=== PATIENT | male | born 1945 | race Caucasian/White ===

== ENCOUNTER 2018-06-01 08:54 | Emergency (ER) | payer MEDICARE, OTHER ==
[~2018-06-01] VITALS: Ht 177.8 cm; Wt 90.7 kg
[~2018-06-01 08:54] MED LIST: ELIMITE 5% CREA60 GM TOPIC; FLOMAX0.4 MG ORAL; FLUVOXAMINE MAL50 MG ORAL; MELATONIN OTC; RISPERDAL1 MG PO; ZOLPIDEM TARTRA10 MG ORAL; [UNRECOGNIZED DRUG - OTHER]
[2018-06-01 09:05] VITALS: BP 142/94
[2018-06-01 10:04] LABS: BILIRUBIN, URINE NEGATIVE (NEGATIVE); COLOR,URINE PALE YELLOW; GLUCOSE, URINE (UA) NEGATIVE (NEGATIVE); KETONES,URINE NEGATIVE (NEGATIVE); LEUKOCYTE ESTERASE ,URINE NEGATIVE (NEGATIVE); NITRITE,URINE NEGATIVE (NEGATIVE); PH,URINE 6 (4.5-8.0); PROTEIN,URINE NEGATIVE (NEGATIVE); UROBILINOGEN,URINE NORMAL MG/DL (0.0-1.0)
[2018-06-01 10:05] LABS: BASOPHILS % (AUTO) 1.4 % (0.0-2.0); EOSINOPHILS % (AUTO) 0.8 % (0.0-3.0); HEMATOCRIT 43.9 % (42.0-52.0); HEMOGLOBIN 14.8 G/DL (14.2-18.0); LYMPHOCYTES % (AUTO) 10.9 % (20.0-45.0); MEAN CORPUSCULAR VOLUME 92 FL (80-99); MONOCYTES % (AUTO) 5.1 % (1.0-10.0); NEUTROPHILS % (AUTO) 81.8 % (45.0-75.0); PLATELET COUNT 208 K/UL (150-450); RED BLOOD COUNT 4.76 M/UL (4.70-6.10); RED CELL DISTRIBUTION WIDTH 11.5 % (11.6-14.8)
[2018-06-01 10:09] LABS: APPEARANCE,URINE CLEAR
[2018-06-01 10:16] LABS: ANION GAP 8 mmol/L (5-15); BLOOD UREA NITROGEN 14 mg/dL (7-18); CALCIUM 9.5 MG/DL (8.5-10.1); CARBON DIOXIDE 28 MMOL/L (21-32); CHLORIDE 100 MMOL/L (98-107); CREATININE 1.1 MG/DL (0.55-1.30); POTASSIUM 4.1 MMOL/L (3.5-5.1); SODIUM 136 MMOL/L (136-145)
--- NOTE | 2018-06-01 10:48 | Diagnostic Imaging Report ---
Indication: Abdominal pain Technique: Continuous helical transaxial imaging of the abdomen and pelvis was obtained from the lung bases to the pubic symphysis. No intravenous contrast was administered. Coronal 2-D reformats were also obtained. Automatic Exposure Control was utilized. Total Dose length Product (DLP): 852.[address] Dose Index Volume (CTDIvol): 17.25 mGy Comparison: none Findings: The lung bases are clear. Cholecystectomy noted. Right kidney is absent. The left kidney is unremarkable. There is no hydronephrosis or renal stones. Aortoiliac calcifications are present. The appendix is normal. No evidence of bowel obstruction. No free air or free fluid identified. The urinary bladder is mostly nondistended. The urinary bladder protrudes inferiorly suggesting weakness of the bladder floor i.e. cystocele. There is a tiny hypodensity in the dome of the liver noted probably cystic though too small to adequately characterize. No adrenal mass seen. There is narrowing of intervertebral discs and accompanying endplate osteophyte formation. Hypertrophied facet joints also demonstrated. IMPRESSION: No acute findings appreciated. Status post right nephrectomy. Status post cholecystectomy. Suggestion of a cystocele with the inferior migration of a part of the urinary bladder. Degenerative changes of the spine. Tiny liver hypodensity likely a cyst. The CT scanner at [facility] is accredited by the [employer] and the scans are performed using dose optimization techniques as appropriate to a performed exam including Automatic Exposure control.
[2018-06-01 11:24] VITALS: BP 142/94
--- NOTE | 2018-06-01 14:38 | Emergency Room Report ---
History of Present Illness General Chief Complaint: Pain Source: Patient, Medical Record Present Illness HPI Patient presents with reports of discomfort to the right lower part of the rib cage area on the flank area reports that 3 days ago he was carrying some fairly heavy Shopping bags up some stairs after that he has felt specific pinpoint tenderness to that region denies any rash denies any chest pain or fall denies any shortness of breath pain is worsened with trying to sit up and also specific touch Denies any neck pain or photophobia denies any fall or trauma Allergies: Coded Allergies: No Known Allergies (Unverified , 02/25/15) Patient History Past Medical History: see triage record Pertinent Family History: none Reviewed Nursing Documentation: PMH: Agreed; PSxH: Agreed Nursing Documentation-PMH Past Medical History: No History, Except For Hx Cardiac Problems: No - IBS, enlarged prostate Hx Cancer: Yes - prostate Hx Gastrointestinal Problems: Yes - GERD, IBS Hx Dialysis: No - 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 History Of Psychiatric Problem: Yes - anxiety, depression Review of Systems All Other Systems: negative except mentioned in HPI Physical Exam Vital Signs Date Time Temp Pulse Resp B/P (MAP) Pulse Ox O2 Delivery O2 Flow Rate FiO2 06/01/18 08:59 98.4 104 18 142/94 97 Room Air Sp02 EP Interpretation: reviewed, normal General Appearance: well appearing, no apparent distress Head: normocephalic, atraumatic Eyes: bilateral eye PERRL, bilateral eye EOMI ENT: hearing grossly normal, normal pharynx, TMs + canals normal, uvula midline Neck: full range of motion, supple, no meningismus, no bony tend Respiratory: lungs clear, normal breath sounds, no rhonchi, no respiratory distress, no retraction, no accessory muscle use Cardiovascular #1: normal peripheral pulses, regular rate, rhythm, no edema, no gallop, no JVD, no murmur Gastrointestinal: normal bowel sounds, non tender, soft, no mass, no organomegaly, non-distended, no guarding, no hernia, no pulsatile mass, no rebound Genitourinary: no CVA tenderness Musculoskeletal: normal inspection, other - No rash fairly specific discomfort on palpation of the lower aspect of the right mid axillary, rib cage region Neurologic: oriented x3, responsive, crane manager III-XII nml as tested, motor strength/ tone normal, sensory intact Psychiatric: mood/affect normal Skin: normal color, no rash, warm/dry, palpation normal, other - Previous surgical scar Lymphatic: normal inspection, no adenopathy Medical Decision Making Diagnostic Impression: Primary Impression: muscle strain ER Course Given the patient's history of nephrectomy given his age and comorbidities initial baseline blood work and imaging was obtained all within normal limits patient remains hemodynamically stable was encouraged to take minimal Tylenol to see if that improves some of the discomfort and patient will have close outpatient follow-up Labs Test 06/01/18 08:38 06/01/18 09:39 White Blood Count 7.0 K/UL (4.8-10.8) Red Blood Count 4.76 M/UL (4.70-6.10) Hemoglobin 14.8 G/DL (14.2-18.0) Hematocrit 43.9 % (42.0-52.0) Mean Corpuscular Volume 92 FL (80-99) Mean Corpuscular Hemoglobin 31.1 PG (27.0-31.0) Mean Corpuscular Hemoglobin Concent 33.7 G/DL (32.0-36.0) Red Cell Distribution Width 11.5 % (11.6-14.8) Platelet Count 208 K/UL (150-450) Mean Platelet Volume 7.2 FL (6.5-10.1) Neutrophils (%) (Auto) 81.8 % (45.0-75.0) Lymphocytes (%) (Auto) 10.9 % (20.0-45.0) Monocytes (%) (Auto) 5.1 % (1.0-10.0) Eosinophils (%) (Auto) 0.8 % (0.0-3.0) Basophils (%) (Auto) 1.4 % (0.0-2.0) Sodium Level 136 MMOL/L (136-145) Potassium Level 4.1 MMOL/L (3.5-5.1) Chloride Level 100 MMOL/L (98-107) Carbon Dioxide Level 28 MMOL/L (21-32) Anion Gap 8 mmol/L (5-15) Blood Urea Nitrogen 14 mg/dL (7-18) Creatinine 1.1 MG/DL (0.55-1.30) Estimat Glomerular Filtration Rate mL/min (>60) Glucose Level 113 MG/DL (74-106) Calcium Level 9.5 MG/DL (8.5-10.1) Urine Color Pale yellow Urine Appearance Clear Urine pH 6 (4.5-8.0) Urine Specific [place] 1.010 (1.005-1.035) Urine Protein Negative (NEGATIVE) Urine Glucose (UA) Negative (NEGATIVE) Urine Ketones Negative (NEGATIVE) Urine Blood Negative (NEGATIVE) Urine Nitrite Negative (NEGATIVE) Urine Bilirubin Negative (NEGATIVE) Urine Urobilinogen Normal MG/DL (0.0-1.0) Urine Leukocyte Esterase Negative (NEGATIVE) CT/MRI/US Diagnostic Results CT/MRI/US Diagnostic Results : Impression CT abdomen pelvisIMPRESSION: No acute findings appreciated. Status post right nephrectomy. Status post cholecystectomy. Suggestion of a cystocele with the inferior migration of a part of the urinary bladder. Degenerative changes of the spine. Tiny liver hypodensity likely a cyst. Last Vital Signs Date Time Temp Pulse Resp B/P (MAP) Pulse Ox O2 Delivery O2 Flow Rate FiO2 06/01/18 11:24 98.4 104 18 142/94 97 Room Air Status: improved Disposition: HOME, SELF-CARE Condition: Stable Referrals: OTHER,REFERRING Patient Instructions: Muscle Strain, [id number] Additional Instructions: Patient is provided with the discharge instructions notified to follow up with primary doctor in the next 2-3 days otherwise return to the er with any worsening symptoms. Please note that this report is being documented using [employer] technology. This can lead to erroneous entry secondary to incorrect interpretation by the dictating instrument. Roc Alicea DO Jun 01, 2018 14:38
== END 2018-06-01 11:00 | disposition home or self-care (01) ==
LOC: EMR 09:30
DX: S29.019A Strain of muscle and tendon of unspecified wall of thorax, initial encounter (principal); X50.0XXA Overexertion from strenuous movement or load, initial encounter; Y92.89 Other specified places as the place of occurrence of the external cause; K21.9 Gastro-esophageal reflux disease without esophagitis; F41.9 Anxiety disorder, unspecified; F32.9 Major depressive disorder, single episode, unspecified; Z85.46 Personal history of malignant neoplasm of prostate
CPT/HCPCS: 36415; 74176; 80048; 81003; 85025; 99284

== ENCOUNTER 2019-03-17 09:25 | Inpatient (IN) | payer MEDICARE, OTHER ==
[~2019-03-17] VITALS: Ht 177.8 cm; Wt 93.0 kg
[2019-03-17 09:25] VITALS: BP 124/84
[~2019-03-17 09:25] MED LIST changes: +FLUVOXAMINE MA100 MG PO; +GLUCOSAMINE1000 M1 PO; +MELATONIN 3 MG1 EAC1 PO; +PREVAGEN ORAL; +VALERIAN ROOT100 MG PO
--- NOTE | 2019-03-17 09:30 | NUR ---
ED Nurse Note: Pt brought by ambulance from home due dizziness x 07:00 AM today; Pt denies pain or N/V/D. Pt is A&O X4, V/S noted with no s/s of acute distress noted at this time. Pt states " I tend to worry a lot because of my mental health". Pt reports hx of BPH, Anxiety and Depression. Pt is connected to the ekg monitor tech. ERMD at bedside evaluating the pt.
--- NOTE | 2019-03-17 09:44 | Emergency Room Report ---
History of Present Illness General Chief Complaint: Palpitations Source: Patient Present Illness HPI Patient is a 74-year-old male brought in by EMS after increased palpitations. Patient onset of symptoms this morning. This was during rest. He denies any prior cardiac history. He reports having some prior history of anxiety. He states he had a temperature/higher than 99 at home. He had a rapid heartbeat. He reports feeling somewhat lightheaded. He denies any loss of consciousness. He reports having some generalized weakness. He reports having prior history of prostate cancer for which he is currently only having surveillance. 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 Review of Systems All Other Systems: negative except mentioned in HPI Physical Exam Vital Signs Date Time Temp Pulse Resp B/P (MAP) Pulse Ox O2 Delivery O2 Flow Rate FiO2 03/17/19 09:22 97.7 101 17 124/84 (97) 99 Room Air Sp02 EP Interpretation: reviewed, normal General Appearance: normal inspection, well appearing, no apparent distress, alert, GCS 15 Head: atraumatic ENT: normal ENT inspection, hearing grossly normal, normal voice Neck: normal inspection, full range of motion, supple, no bony tend Respiratory: normal inspection, lungs clear, normal breath sounds, no respiratory distress, no retraction, no wheezing Cardiovascular #1: regular rate, rhythm, no edema Gastrointestinal: normal inspection, normal bowel sounds, non tender, soft, no guarding, no hernia Genitourinary: no CVA tenderness Musculoskeletal: normal inspection, back normal, normal range of motion Neurologic: normal inspection, alert, oriented x3, responsive, director of vocational training III-XII nml as tested, speech normal Psychiatric: normal inspection, judgement/insight normal, mood/affect normal Skin: no rash Medical Decision Making Diagnostic Impression: Primary Impression: Palpitations ER Course Patient presented for palpitations. The differential diagnosis included was not limited to arrhythmia, thyroid storm, sepsis, anemia, myocardial infarction , alcohol withdrawal, stimulant abuse, caffeine overdose among others. Because of complexity of patient's case laboratory tests and imaging studies were ordered. EKG interpreted by me showed normal sinus rhythm without acute ST or T wave changes. Patient was noted to have some rapid heartbeat. This may be anxiety related however given the patient's comorbidities patient will be admitted to the hospital. He was noted to have some abdominal pain and CT abdomen pelvis was ordered for this. CT abdomen pelvis read by radiology showed no evidence of acute abdominal pathology. There may be some enteritis. Dr. Johnathon Fox was contacted for inpatient management. Laboratory Tests Test 03/17/19 09:45 White Blood Count 7.6 K/UL (4.8-10.8) Red Blood Count 4.37 M/UL (4.70-6.10) L Hemoglobin 13.4 G/DL (14.2-18.0) L Hematocrit 39.2 % (42.0-52.0) L Mean Corpuscular Volume 90 FL (80-99) Mean Corpuscular Hemoglobin 30.7 PG (27.0-31.0) Mean Corpuscular Hemoglobin Concent 34.2 G/DL (32.0-36.0) Red Cell Distribution Width 11.3 % (11.6-14.8) L Platelet Count 211 K/UL (150-450) Mean Platelet Volume 6.0 FL (6.5-10.1) L Neutrophils (%) (Auto) % (45.0-75.0) Lymphocytes (%) (Auto) % (20.0-45.0) Monocytes (%) (Auto) % (1.0-10.0) Eosinophils (%) (Auto) % (0.0-3.0) Basophils (%) (Auto) % (0.0-2.0) Differential Total Cells Counted 100 Neutrophils % (Manual) 92 % (45-75) H Lymphocytes % (Manual) 3 % (20-45) L Monocytes % (Manual) 5 % (1-10) Eosinophils % (Manual) 0 % (0-3) Basophils % (Manual) 0 % (0-2) Band Neutrophils 0 % (0-8) Platelet Estimate Adequate Platelet Morphology Normal Red Blood Cell Morphology Normal Prothrombin Time 9.9 SEC (9.30-11.50) Prothrombin Time INR 0.9 (0.9-1.1) PTT 26 SEC (23-33) Urine Color Pale yellow Urine Appearance Clear Urine pH 6 (4.5-8.0) Urine Specific [place] 1.010 (1.005-1.035) Urine Protein Negative (NEGATIVE) Urine Glucose (UA) Negative (NEGATIVE) Urine Ketones Negative (NEGATIVE) Urine Blood Negative (NEGATIVE) Urine Nitrite Negative (NEGATIVE) Urine Bilirubin Negative (NEGATIVE) Urine Urobilinogen Normal MG/DL (0.0-1.0) Urine Leukocyte Esterase Negative (NEGATIVE) Sodium Level 133 MMOL/L (136-145) L Potassium Level 3.9 MMOL/L (3.5-5.1) Chloride Level 101 MMOL/L (98-107) Carbon Dioxide Level 26 MMOL/L (21-32) Anion Gap 6 mmol/L (5-15) Blood Urea Nitrogen 14 mg/dL (7-18) Creatinine 1.1 MG/DL (0.55-1.30) Estimate Glomerular Filtration Rate mL/min (>60) Glucose Level 132 MG/DL (74-106) H Lactic Acid Level 1.50 mmol/L (0.4-2.0) Calcium Level 8.5 MG/DL (8.5-10.1) Phosphorus Level 2.3 MG/DL (2.5-4.9) L Magnesium Level 1.6 MG/DL (1.8-2.4) L Total Bilirubin 0.7 MG/DL (0.2-1.0) Aspartate Amino Transferase (AST) 20 U/L (15-37) Alanine Aminotransferase (ALT) 24 U/L (12-78) Alkaline Phosphatase 62 U/L (46-116) Total Creatine Kinase 218 U/L (26-308) Creatine Kinase MB 2.6 NG/ML (0.0-3.6) Creatine Kinase MB Relative Index 1.1 Troponin I 0.008 ng/mL (0.000-0.056) Pro-B-Type Natriuretic Peptide 82 pg/mL (0-125) Total Protein 6.4 G/DL (6.4-8.2) 5.9 G/DL (6.4-8.2) L Albumin 3.2 G/DL (3.4-5.0) L 3.1 G/DL (3.4-5.0) L Globulin 3.2 g/dL 2.8 g/dL Albumin/Globulin Ratio 1.0 (1.0-2.7) 1.1 (1.0-2.7) Lipase 84 U/L (73-393) Microbiology Date/Time Source Procedure Growth Status 03/17/19 09:45 Nasal Nares - Final Complete 03/17/19 09:45 Nasal Nares - Final Complete EKG Diagnostic Results Rate: normal Rhythm: NSR ST Segments: no acute changes Last Vital Signs Date Time Temp Pulse Resp B/P (MAP) Pulse Ox O2 Delivery O2 Flow Rate FiO2 03/17/19 09:25 97.7 110 17 124/84 100 Room Air Status: unchanged Disposition: ADMITTED INPATIENT Condition: Stable Scripts Metronidazole* (FLAGYL*) 500 Mg Tablet 500 MG ORAL EVERY 8 HOURS for 6 Days, TAB Prov: Johnathon Fox MD 03/18/19 Ciprofloxacin (CIPRO) 500 Mg/5 Ml [place]..rec 500 MG PO BIDAC for 6 Days, TAB Prov: Johnathon Fox MD 03/18/19 Derrick Dumont MD Mar 17, 2019 09:44
[2019-03-17 10:33] LABS: HEMATOCRIT 39.2 % (42.0-52.0); HEMOGLOBIN 13.4 G/DL (14.2-18.0); MEAN CORPUSCULAR VOLUME 90 FL (80-99); PLATELET COUNT 211 K/UL (150-450); RED BLOOD COUNT 4.37 M/UL (4.70-6.10); RED CELL DISTRIBUTION WIDTH 11.3 % (11.6-14.8); WHITE BLOOD COUNT 7.6 K/UL (4.8-10.8)
[2019-03-17 10:41] LABS: APPEARANCE,URINE CLEAR; BILIRUBIN, URINE NEGATIVE (NEGATIVE); COLOR,URINE PALE YELLOW; GLUCOSE, URINE (UA) NEGATIVE (NEGATIVE); KETONES,URINE NEGATIVE (NEGATIVE); LEUKOCYTE ESTERASE ,URINE NEGATIVE (NEGATIVE); NITRITE,URINE NEGATIVE (NEGATIVE); PH,URINE 6 (4.5-8.0); PROTEIN,URINE NEGATIVE (NEGATIVE); UROBILINOGEN,URINE NORMAL MG/DL (0.0-1.0)
[2019-03-17 10:42] LABS: ANION GAP 6 mmol/L (5-15); BLOOD UREA NITROGEN 14 mg/dL (7-18); CALCIUM 8.5 MG/DL (8.5-10.1); CARBON DIOXIDE 26 MMOL/L (21-32); CHLORIDE 101 MMOL/L (98-107); CREATININE 1.1 MG/DL (0.55-1.30); INR 0.9 (0.9-1.1); POTASSIUM 3.9 MMOL/L (3.5-5.1); SODIUM 133 MMOL/L (136-145)
--- NOTE | 2019-03-17 10:46 | Diagnostic Imaging Report ---
EXAM: XR Chest, 1 View CLINICAL HISTORY: SOB TECHNIQUE: Frontal view of the chest. COMPARISON: No relevant prior studies available. FINDINGS: Lungs: Reduced lung volumes. Mild reticulonodular opacities at the left lung base. Pleural space: Unremarkable. No pneumothorax. Heart: Unremarkable. No cardiomegaly. Mediastinum: Unremarkable. Bones joints: No acute fracture. Vasculature: Large ectatic aorta. IMPRESSION: 1. Large ectatic aorta. 2. Reduced lung volumes. Mild reticular nodular opacities at the left lung base.
[2019-03-17 10:54] LABS: ALANINE AMINOTRANSFERASE 24 U/L (12-78); ALBUMIN 3.2 G/DL (3.4-5.0); ALKALINE PHOSPHATASE 62 U/L (46-116); ASPARTATE AMINO TRANSFERASE 20 U/L (15-37); BILIRUBIN,TOTAL 0.7 MG/DL (0.2-1.0); CKMB 2.6 NG/ML (0.0-3.6); CREATINE KINASE 218 U/L (26-308); PHOSPHORUS 2.3 MG/DL (2.5-4.9)
[2019-03-17 11:25] VITALS: BP 129/78
--- NOTE | 2019-03-17 13:21 | Diagnostic Imaging Report ---
Indication: Abdominal pain Technique: Continuous helical transaxial imaging of the abdomen and pelvis was obtained from the lung bases to the pubic symphysis. No intravenous contrast was administered. Coronal 2-D reformats were also obtained. Automatic Exposure Control was utilized. Total Dose length Product (DLP): 1064.[address] Dose Index Volume (CTDIvol): 18.5 mGy Comparison: none Findings: Mild linear densities at the lung bases demonstrated likely scarring or atelectasis. There is minimal bronchiectasis at the right lung base also noted. Small hiatal hernia is present. There is a calcification in the liver nonspecific. Cholecystectomy noted. Normal spleen size demonstrated. There is no adrenal mass. The right kidney is absent. Surgical clips noted in the right renal fossa. The left kidney is unremarkable. There is no hydronephrosis. There is no free fluid. In the right lower quadrant and pelvis there are abnormal loops of small bowel that are mildly dilated with a thickened wall. Localized enteritis suspected. Please correlate clinically. There is no pneumatosis. The bladder is nondistended. IMPRESSION: Localize enteritis involving loops of small bowel in the right lower quadrant and pelvis. Consider infectious and/or inflammatory enteritis, ischemia, in addition to other causes. Correlate clinically. No evidence of bowel perforation, abscess, obstruction or pneumatosis. Status post right nephrectomy Status post cholecystectomy Calcification in the liver nonspecific. Basal atelectasis and/or scarring. The CT scanner at [facility] is accredited by the [employer] and the scans are performed using dose optimization techniques as appropriate to a performed exam including Automatic Exposure control.
[2019-03-17 14:30] VITALS: BP 146/105
[2019-03-17] MEDS ORDERED: cefTRIAXone 1 GM in NS 55 ML IVPB ONE (14:45)
--- NOTE | 2019-03-17 15:08 | NUR ---
ED Nurse Note: Report given to AMANDEEP Hector.
--- NOTE | 2019-03-17 15:23 | NUR ---
ED Nurse Note: pt taken to tele room 219 accompanied by RN via edson in stable condition with monitor box. belonging list signed off.
--- NOTE | 2019-03-17 15:30 | NUR ---
NURSE NOTES: Patient stable AOx4 with no complaints of pain and no s/sx of distress. Skin is intact. RR even and unlabored. Call light within reach. Bed low and locked. wood gang sawyer placed on patient. Will continue to monitor.
[2019-03-17 16:00] VITALS: BP 118/77
[2019-03-17] MEDS ORDERED: ONCE DAILY1 EAC1 ORAL (16:12)
[2019-03-17] MEDS: Ciprofloxacin 500mg tab ORAL SCH (17:00)
--- NOTE | 2019-03-17 19:07 | NUR ---
HAND-OFF: Report given to Katy RN. Patient stable. Magnesium infusing.
--- NOTE | 2019-03-17 19:26 | NUR ---
NURSE NOTES: Received patient from AMANDEEP Sparks. Patient resting in bed comfortably, talkative, and alert. No signs of shortness of breath, distress, or pain. Patient able to make needs known. IV site checked, intact and patent, no signs of infiltration, bleeding, or erythema. Bed in lowest position, brakes on, bed alarm on, and call light within reach. Will continue with plan of care.
--- NOTE | 2019-03-17 19:45 | History and Physical Report ---
DATE OF ADMISSION: 03/17/2019 CHIEF COMPLAINT: Diarrhea, palpitations, dizziness. HISTORY OF PRESENT ILLNESS: The patient is a 74-year-old male. He has a history of anxiety disorder, Davidson's esophagus, IBS, prostate cancer status post prostatectomy who presented from home with complaints of fevers, malaise, weakness, dizziness, palpitations, and diarrhea. According to the patient, he was well until the morning of admission. When he awoke, he had multiple episodes of watery diarrhea. He had subjective fevers, chills, malaise, weakness, palpitations. Because of fever and diarrhea, he presented to the emergency room. On evaluation, there he was slightly tachycardic. Blood pressure was stable. Troponin was 0.008. His sodium was 133. He had a low magnesium 1.6. CT scan of the abdomen showed some thickened small bowel loops, possibly consistent with a infectious enteritis. The patient is now admitted for further evaluation and care. PAST MEDICAL HISTORY: As above. PAST SURGICAL HISTORY: Includes prostatectomy, hernia repair, and cholecystectomy. CURRENT MEDICATIONS: Reconciled and reviewed. ALLERGIES: None. FAMILY HISTORY: Significant for history of prostate cancer, coronary artery disease, stroke. SOCIAL HISTORY: Negative for tobacco, ethanol, or drugs. REVIEW OF SYSTEMS: GENERAL: No fevers or chills. HEENT: No headaches. CARDIOPULMONARY: No chest pain or shortness of breath. Positive palpitations, dizziness. GASTROINTESTINAL: Positive diarrhea. No nausea. No vomiting. No bright red blood per rectum. GENITOURINARY: No urgency or frequency. MUSCULOSKELETAL: No joint pain or swelling. NEUROLOGIC: No evidence of seizures. PHYSICAL EXAMINATION: VITAL SIGNS: Temperature 97.9, pulse 94, respirations 18, and blood pressure 118/77. GENERAL: The patient is well developed, no apparent distress. HEART: Regular rate and rhythm. LUNGS: Clear. ABDOMEN: Soft, nontender, nondistended. EXTREMITIES: Without clubbing, cyanosis, or edema. NEUROLOGIC: Nonfocal. LABORATORY AND DIAGNOSTIC DATA: Labs show sodium 133, potassium 3.9, creatinine of 1.1, glucose 132, magnesium 1.6. Lactic acid was 1.5. Troponin is 0.008. CT showed some inflammation of the small intestine consistent with possible enteritis. EKG showed sinus rhythm. Echo also was normal. ASSESSMENT: This is a 74-year-old male with a history of anxiety, IBS, Davidson's esophagus who presents with complaints of diarrhea suspect secondary to gastroenteritis. PLAN: IV hydration. Oral Cipro and Flagyl has been ordered. Monitor for diarrhea while ambulating in the morning. Repeat troponin if stable, the patient can be discharged home on oral antibiotics for possible gastroenteritis/colitis. Johnathon Fox M.D. DR: Dexter JOB#: [id number] CC:
[2019-03-17 20:00] VITALS: BP 134/86
--- NOTE | 2019-03-17 20:09 | NUR ---
NURSE NOTES: Paged Dr. Fox regarding patient's night time medications, received new orders. Noted and carried out.
[2019-03-17] MEDS: Heparin 5000 units/ml inj SUBQ SCH (20:50)
[2019-03-18] VITALS: BP 119/75
[2019-03-18 04:00] VITALS: BP 125/86
[2019-03-18] MEDS ORDERED: FLAGYL500 MG ORAL (06:37)
[2019-03-18] MEDS ORDERED: CIPRO500 MG/51 PO (06:37)
--- NOTE | 2019-03-18 07:05 | NUR ---
HAND-OFF: Report given to AMANDEEP Arcos. Endorsed plan of care.
--- NOTE | 2019-03-18 07:35 | NUR ---
NURSE NOTES: Received report from AMANDEEP Higginbotham. Patient in bed resting, no active s/s cardiac, respiratory distress noticed at this time. Patient on room air, AOx4, SR with HR 80. IV on left AC 20G, asymptomatic, patent, intact, IV fluid running as prescribed rate. Denies pain at this time. Bed in lowest position, side rails upx2, call light within reach, bed alarm on, urinal at easy reach. Will continue to monitor.
[2019-03-18 07:57] LABS: BASOPHILS % (AUTO) 0.8 % (0.0-2.0); HEMATOCRIT 37.8 % (42.0-52.0); LYMPHOCYTES % (AUTO) 17.8 % (20.0-45.0); MEAN CORPUSCULAR VOLUME 90 FL (80-99); MONOCYTES % (AUTO) 11.2 % (1.0-10.0); NEUTROPHILS % (AUTO) 68.3 % (45.0-75.0); PLATELET COUNT 183 K/UL (150-450); RED BLOOD COUNT 4.21 M/UL (4.70-6.10); RED CELL DISTRIBUTION WIDTH 11.4 % (11.6-14.8)
[2019-03-18 08:00] VITALS: BP 132/82
[2019-03-18 08:14] LABS: ALANINE AMINOTRANSFERASE 23 U/L (12-78); ALBUMIN 3.1 G/DL (3.4-5.0); ALBUMIN/GLOBULIN RATIO 1.1 (1.0-2.7); ALKALINE PHOSPHATASE 55 U/L (46-116); ANION GAP 8 mmol/L (5-15); ASPARTATE AMINO TRANSFERASE 20 U/L (15-37); BILIRUBIN,TOTAL 0.6 MG/DL (0.2-1.0); BLOOD UREA NITROGEN 10 mg/dL (7-18); CALCIUM 8.4 MG/DL (8.5-10.1); CARBON DIOXIDE 27 MMOL/L (21-32); CHLORIDE 105 MMOL/L (98-107); POTASSIUM 4.3 MMOL/L (3.5-5.1); SODIUM 140 MMOL/L (136-145)
[2019-03-18] MEDS: Ciprofloxacin 500mg tab ORAL SCH (08:14)
[2019-03-18] MEDS: Heparin 5000 units/ml inj SUBQ SCH (08:14)
--- NOTE | 2019-03-18 09:55 | NUR ---
PT EVALUATION NOTE Patient seen for initial evaluation. Patient is independent with all functional mobility without assistive device, demonstrates stable ambulation, able to negotiate one flight of stairs. Skilled inpatient PT intervention not warranted due to independence with ADLs, patient discharged from PT, Josselyn BERNSTEIN notified. Addendum: 03/18/19 at 1136 by JAI FARNSWORTH PT Amended: Links added.
[2019-03-18 12:00] VITALS: BP 141/83
--- NOTE | 2019-03-18 13:00 | NUR ---
NURSE NOTES: Patient anxious, stated want to go home today regardless what Dr. Fernandez has told the patient. Dr. Fox made aware of patient's wish. No order given at this time. Will continue to monitor.
--- NOTE | 2019-03-18 13:07 | NUR ---
NURSE NOTES: Patient made aware paged Dr. Fox, awaiting for order, patient stated, if Dr. Fox does not put discharge order within one hour, will sign AMA. CN made aware.
--- NOTE | 2019-03-18 14:24 | Cardiology Report ---
APPROVED REPORT EKG Measurement Heart [id number] Sinus tachycardia Left axis deviation Abnormal ECG
--- NOTE | 2019-03-18 14:30 | NUR ---
NURSE NOTES: Patient discharged to home per Dr. Fox. Patient's ID removed and placed in shredder. IV removed, media monitor returned to threat monitoring analyst. Patient taking bus per patient's preference in a stable condition. Patient AOx4, ambulate with steady gait. Patient discharged with all belongings. Family member made aware. Addendum: 03/18/19 at 1433 by BYRON JEAN-BAPTISTE RN Prescription, Cipro and Flagyl, given to patient.
--- NOTE | 2019-03-18 15:51 | NUR ---
CASE MANAGEMENT:REVIEW 03/17/19 74 YR OLD MALE BIBA FROM HOME CC; PALPITATIONS. DIZZINESS SI: PALPITATIONS 97.7 101 17 124/84 99% ON RA PHOS-2.3 MAG-1.6 TROPONIN(-) IS: 1L NS BOLUS IV ROCEPHIN CT ABD/PELVIS 2DECHO CHEST XRAY : TO TELEMETRY IS: HEPARIN SQ Q12 03/18/19 DISCHARGED
--- NOTE | 2019-03-18 23:00 | Progress Note ---
DATE: 03/18/2019 CARDIOLOGY PROGRESS NOTE SUBJECTIVE: Palpitations have resolved. The patient feels better. No dizziness. No nausea or vomiting. Resolved diarrhea. Monitored rhythm reviewed, sinus rhythm with sinus tachycardia. No other ectopics. A 2D echocardiogram normal ejection fraction with no structural abnormality seen. PHYSICAL EXAMINATION: VITAL SIGNS: Blood pressure 132/82, pulse 74, respiratory rate 18, afebrile, oxygen saturation room air 100%. NECK: Supple. Jugular venous pressure normal. LUNGS: Clear. ABDOMEN: Soft, nontender. No guarding or rebound. CARDIAC: Regular rhythm and rate. Normal S1, S2 with no murmur, rub, or gallop. EXTREMITIES: Good pulses. No edema. NEUROLOGIC: Nonfocal. IMPRESSION: 1. Palpitations due to physiologically appropriate sinus tachycardia, now resolved. 2. Secondary sinus tachycardia resolved. 3. Hypovolemia and dehydration corrected with IV fluids. 4. Hyponatremia, hypomagnesemia, hypophosphatemia status post correction with IV fluid and replacement therapy. PLAN: 1. No additional cardiovascular workup or therapy presently indicated. 2. Outpatient follow up once diarrhea controlled and adequate oral intake is maintained of nutrients, fluids, and electrolytes. Camron Fernandez M.D. DR: Roxanne JOB#: [id number] CC:
--- NOTE | 2019-03-18 23:00 | Consultation ---
DATE OF CONSULTATION: 03/17/2019 CARDIOLOGY CONSULTATION CONSULTING PHYSICIAN: Camron Fernandez M.D. REFERRING PHYSICIAN: Johnathon Fox M.D. REASON FOR CONSULTATION: Palpitations. HISTORY OF PRESENT ILLNESS: This is a 74-year-old male with anxiety disorder, who presented to the emergency room with palpitations, diarrhea, dizziness, and weakness. He noted subjective fevers and chills and the symptoms noted for couple of days. He was concerned about rapid heart rate and palpitations. He came to the emergency room and hospitalization was initiated following a diagnostic workup. I have been asked to address his cardiovascular status. PAST MEDICAL HISTORY: Prostate cancer with history of prostatectomy, herniorrhaphy, status post cholecystectomy, Davidson's esophagitis, irritable bowel syndrome, and anxiety disorder. Right nephrectomy over 40 years ago due to trauma. ALLERGIES: None. MEDICATIONS: Reviewed. FAMILY HISTORY: Notable for prostate cancer, coronary artery disease, and cerebrovascular disease. SOCIAL HISTORY: Negative for smoking, alcohol, or substance abuse. REVIEW OF SYSTEMS: No history of rheumatic heart disease or known cardiac arrhythmias. No history of heart attack or high blood pressure. No history of endocarditis. No history of syncope. There is no history of diabetes mellitus or thyroid disorder. No history of seizures or stroke. He denies any known history of lung disease or asthma. PHYSICAL EXAMINATION: VITAL SIGNS: Afebrile, blood pressure 124/84, pulse 101, and respirations 17. Oxygen saturation on room air 99%. HEENT: Conjunctivae pink. Sclerae are anicteric. Oropharynx clear. NECK: Supple. Jugular venous pressure normal. LUNGS: Clear. CARDIAC: Regular rhythm, rapid rate. Normal S1, S2 with no murmur, rub, or gallop. ABDOMEN: Soft and nontender. EXTREMITIES: No clubbing or cyanosis. No edema. There is slight resting tremor. LABORATORY DATA: White count 7.6, hemoglobin 13.4. Sodium 133, potassium 3.9, bicarbonate 26, BUN 14, creatinine 1.1. Glucose 132. Magnesium 1.6. Phosphorus 2.3. Albumin 3.2. Urinalysis with no active sediment. EKG - sinus tachycardia, leftward axis, otherwise normal. Chest x-ray with no acute process. IMPRESSION: 1. Palpitations are likely due to rapid heart rate. 2. Rapid heart rate is sinus tachycardia and physiologically appropriate. 3. Diarrhea with secondary hypovolemia and dehydration. 4. Hypophosphatemia. 5. Hypomagnesemia. 6. Probable gastroenteritis. 7. Hyponatremia due to volume losses. 8. Mild protein-calorie malnutrition. PLAN: 1. Hydration. 2. Replacement of magnesium and phosphorous. 3. Follow up chemistry panel. 4. Saline hydration. 5. Cardiac monitoring. 6. Thyroid panel. 7. No role for antiarrhythmic therapy at this time. Camron Fernandez M.D. DR: CHARITY JOB#: [id number] CC:
--- NOTE | 2019-03-19 00:30 | Discharge Summary ---
DATE OF ADMISSION: 03/17/2019 DATE OF DISCHARGE: 03/18/2019 ADMISSION DIAGNOSES: 1. Colitis. 2. Dehydration. 3. Intractable diarrhea. 4. History of IBS. DISCHARGE DIAGNOSES: 1. Colitis. 2. Dehydration. 3. Intractable diarrhea. 4. History of IBS. HOSPITAL COURSE: The patient was admitted with complaints of severe diarrhea and dehydration. He had a CAT scan that showed enteritis. The patient's diarrhea resolved. He did receive antibiotic therapy for colitis. On discharge, he was stable. His diarrhea was better. He had no vomiting. He was tolerating p.o.'s. He will be discharged home to complete another 6 days of oral antibiotic therapy for colitis. DISCHARGE MEDICATIONS: Please see discharge medication list for discharge medications. DIET: Regular diet. ACTIVITIES: Ad-liliana. FOLLOWUP: The patient will be followed up by his PMD in one week. Johnathon Fox M.D. DR: CHECO JOB#: [id number] CC:
--- NOTE | 2019-03-19 16:01 | Cardiology Report ---
APPROVED REPORT EXAM: Two-dimensional and M-mode echocardiogram with Doppler and color Doppler. INDICATION Palpitations M-Mode DIMENSIONS IVSd1.1 (0.7-1.1cm)Left Atrium (MM)2.2 (1.6-4.0cm) LVDd5.9 (3.5-5.6cm)Aortic Root3.7 (2.0-3.7cm) PWd1.0 (0.7-1.1cm)Aortic Cusp Exc.2.3 (1.5-2.0cm) LVDs3.7 (2.5-4.0cm) PWs1.4 cm Technically difficult study due to poor acoustic windows. Study quality precludes accurate assessment of regional wall motion. Normal left ventricular chamber size, systolic function and wall motion. Left ventricular ejection fraction estimated to be 60-65 %. Borderline left ventricular hypertrophy. Anterior Echo-free space, may be due to pericardial fat or effusion. All other cardiac chamber sizes are within normal limits. Focal aortic valve sclerosis with adequate cusp excursion. Thickened mitral valve leaflets with normal excursion. Mitral annulus and aortic root calcification. Pulmonic valve not well visualized. Normal tricuspid valve structure. IVC is normal in size with physiological collapse. A color flow and spectral Doppler study was performed and revealed: No aortic regurgitation. No mitral regurgitation. Mitral diastolic velocities suggest mild left ventricular diastolic dysfunction (Grade I). Trace tricuspid regurgitation. Tricuspid systolic velocities suggests peak right ventricular systolic pressure of 18 mmHg. No pulmonic regurgitation present.
== END 2019-03-18 14:23 | disposition home or self-care (01) | DRG 392 ==
LOC: EDSEX 09:25 → EDBD 09:25 → EMR 10:30 → 2E 14:02 → EDBEDREQ 14:48 → OBSVTOIN 16:43
DX: K52.9 Noninfective gastroenteritis and colitis, unspecified (principal); E87.1 Hypo-osmolality and hyponatremia; E46 Unspecified protein-calorie malnutrition; E86.0 Dehydration; K58.9 Irritable bowel syndrome, unspecified; Z85.46 Personal history of malignant neoplasm of prostate; Z90.79 Acquired absence of other genital organ(s); Z90.49 Acquired absence of other specified parts of digestive tract; F41.8 Other specified anxiety disorders; R00.0 Tachycardia, unspecified; E86.1 Hypovolemia; E83.39 Other disorders of phosphorus metabolism; E83.42 Hypomagnesemia
CPT/HCPCS: 36415; 71045; 74176; 80053; 81003; 82550; 82553; 83605; 83690; 83735; 83880; 84100; 84484; 85007; 85025; 85610; 85730; 86710; 87040; 93005; 93306; 96361; 96365; 99285

== ENCOUNTER 2019-03-31 15:14 | Emergency (ER) | payer MEDICARE, OTHER ==
[~2019-03-31] VITALS: Ht 177.8 cm; Wt 90.7 kg
[~2019-03-31 15:14] MED LIST changes: +CIPRO500 MG/51 PO; +FLAGYL500 MG ORAL; +ONCE DAILY1 EAC1 ORAL
[2019-03-31] MEDS ORDERED: Omnipaque-300 100ml vial INJ PRN (15:30)
[2019-03-31] MEDS ORDERED: Mylanta II UD 30ml ORAL ONE (15:30)
[2019-03-31] MEDS ORDERED: Dicyclomine HCl 10mg/5ml oral soln ORAL ONE (15:30)
[2019-03-31 16:25] LABS: HEMOGLOBIN 13.1 G/DL (14.2-18.0); MEAN CORPUSCULAR VOLUME 86 FL (80-99); PLATELET COUNT 191 K/UL (150-450); RED BLOOD COUNT 4.18 M/UL (4.70-6.10); RED CELL DISTRIBUTION WIDTH 10.3 % (11.6-14.8); WHITE BLOOD COUNT 10.8 K/UL (4.8-10.8)
--- NOTE | 2019-03-31 16:31 | Emergency Room Report ---
History of Present Illness General Chief Complaint: Diarrhea Source: Patient Present Illness HPI 74-year-old male history of depression history of colitis presents with diarrhea x1 day no blood up to 10 episodes, patient has been tolerating good p.o. no nausea no vomiting, no chest pain, he does endorse some crampy abdominal pain no aggravating relieving factors severity is mild, diffuse. Patient presents requesting antibiotics, patient states he had ciprofloxacin as well as Flagyl last time which alleviated his diarrhea, 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 Review of Systems All Other Systems: negative except mentioned in HPI Physical Exam Vital Signs Date Time Temp Pulse Resp B/P (MAP) Pulse Ox O2 Delivery O2 Flow Rate FiO2 03/31/19 15:17 99.1 113 18 130/82 (98) 99 Room Air Sp02 EP Interpretation: reviewed, normal General Appearance: well appearing, no apparent distress, alert Head: normocephalic, atraumatic Eyes: bilateral eye PERRL, bilateral eye EOMI ENT: uvula midline, moist mucus membranes Neck: supple, thyroid normal, supple/symm/no masses Respiratory: lungs clear, no respiratory distress, no retraction, no accessory muscle use Cardiovascular #1: normal peripheral pulses, regular rate, rhythm, no edema, no gallop, no murmur Gastrointestinal: non tender, soft, no guarding, no rebound Musculoskeletal: normal inspection Neurologic: alert, oriented x3 Psychiatric: mood/affect normal Skin: no rash, warm/dry Medical Decision Making Diagnostic Impression: Primary Impression: Diarrhea Qualified Codes: R19.7 - Diarrhea, unspecified ER Course 74-year-old male presents with diarrhea, x7 episodes, patient given rehydration therapy, labs unremarkable CT negative Counseled patient, symptomatic care Dispo home w/ return precautions Follow-up with PCP Repeat abdominal exam 7:23 PM, patient's abdomen soft nontender Laboratory Tests Test 03/31/19 16:15 03/31/19 16:44 White Blood Count 10.8 K/UL (4.8-10.8) Red Blood Count 4.18 M/UL (4.70-6.10) L Hemoglobin 13.1 G/DL (14.2-18.0) L Hematocrit 36.0 % (42.0-52.0) L Mean Corpuscular Volume 86 FL (80-99) Mean Corpuscular Hemoglobin 31.3 PG (27.0-31.0) H Mean Corpuscular Hemoglobin Concent 36.3 G/DL (32.0-36.0) H Red Cell Distribution Width 10.3 % (11.6-14.8) L Platelet Count 191 K/UL (150-450) Mean Platelet Volume 6.1 FL (6.5-10.1) L Neutrophils (%) (Auto) % (45.0-75.0) Lymphocytes (%) (Auto) % (20.0-45.0) Monocytes (%) (Auto) % (1.0-10.0) Eosinophils (%) (Auto) % (0.0-3.0) Basophils (%) (Auto) % (0.0-2.0) Differential Total Cells Counted 100 Neutrophils % (Manual) 91 % (45-75) H Lymphocytes % (Manual) 7 % (20-45) L Monocytes % (Manual) 1 % (1-10) Eosinophils % (Manual) 0 % (0-3) Basophils % (Manual) 0 % (0-2) Band Neutrophils 1 % (0-8) Platelet Estimate Adequate Platelet Morphology Normal Red Blood Cell Morphology Normal Sodium Level 129 MMOL/L (136-145) L Potassium Level 3.6 MMOL/L (3.5-5.1) Chloride Level 96 MMOL/L (98-107) L Carbon Dioxide Level 30 MMOL/L (21-32) Anion Gap 3 mmol/L (5-15) L Blood Urea Nitrogen 11 mg/dL (7-18) Creatinine 1.1 MG/DL (0.55-1.30) Estimate Glomerular Filtration Rate mL/min (>60) Glucose Level 103 MG/DL (74-106) Calcium Level 7.9 MG/DL (8.5-10.1) L Total Bilirubin 0.6 MG/DL (0.2-1.0) Aspartate Amino Transferase (AST) 24 U/L (15-37) Alanine Aminotransferase (ALT) 42 U/L (12-78) Alkaline Phosphatase 55 U/L (46-116) Total Protein 6.8 G/DL (6.4-8.2) Albumin 3.3 G/DL (3.4-5.0) L Globulin 3.5 g/dL Albumin/Globulin Ratio 0.9 (1.0-2.7) L Lipase 127 U/L (73-393) Urine Color Pale yellow Urine Appearance Clear Urine pH 7 (4.5-8.0) Urine Specific [place] 1.010 (1.005-1.035) Urine Protein Negative (NEGATIVE) Urine Glucose (UA) Negative (NEGATIVE) Urine Ketones Negative (NEGATIVE) Urine Blood Negative (NEGATIVE) Urine Nitrite Negative (NEGATIVE) Urine Bilirubin Negative (NEGATIVE) Urine Urobilinogen Normal MG/DL (0.0-1.0) Urine Leukocyte Esterase Negative (NEGATIVE) CT/MRI/US Diagnostic Results CT/MRI/US Diagnostic Results : Impression Preliminary Findings Only See Final Report For Complete Findings CT ABDOMEN & PELVIS With Contrast: EXAM: CT Abdomen and Pelvis With Intravenous Contrast CLINICAL HISTORY: ABD PAIN TECHNIQUE: Axial computed tomography images of the abdomen and pelvis with intravenous contrast. Coronal and sagittal reformatted images were created and reviewed. COMPARISON: Chest x-ray of March 17, 2019 and noncontrast abdomen and pelvis CT of March 17, 2019. FINDINGS: Lung bases: The lung bases show ectasia of the ascending thoracic aorta to 4.5 cm near the root.. ABDOMEN: Liver: Normal Gallbladder and bile ducts: Mild intra-and extrahepatic biliary distention post cholecystectomy. Pancreas: Atrophic. No ductal dilation. Spleen: Normal Adrenals: Normal . Kidneys and ureters: Normal left kidney. Surgically absent right kidney. Stomach and bowel: Normal. Findings of enteritis noted previously have since resolved. Appendix: Not well seen. No findings of acute appendicitis. PELVIS: Bladder: Normal Reproductive: Normal ABDOMEN and PELVIS: Intraperitoneal space: No free intraperitoneal fluid or free intraperitoneal gas. Bones/joints: Lumbar spinal degenerative spondylosis. No acute fracture. No dislocation. Soft tissues: There is a right flank abdominal wall hernia through which the right colon protrudes. Vasculature: Normal. Lymph nodes: Normal . IMPRESSION: 1. No specific findings to explain abdominal pain are identified post cholecystectomy and right nephrectomy with residual right flank likely incisional hernia. 2. Ectasia of the ascending thoracic aorta is present. No findings suspicious for abdominal aortic dissection or aneurysm. Radiologist: Janet Grijalva MD Study ready at 18:55 and initial results transmitted at 19:10 Last Vital Signs Date Time Temp Pulse Resp B/P (MAP) Pulse Ox O2 Delivery O2 Flow Rate FiO2 03/31/19 15:17 99.1 113 18 130/82 (98) 99 Room Air Disposition: HOME, SELF-CARE Condition: Stable Scripts Dicyclomine Hcl* (DICYCLOMINE HCL*) 10 Mg Capsule 10 MG ORAL QID PRN for Abdominal cramps, #20 CAP Prov: Natanael Rosado MD 03/31/19 Referrals: [facility] K[facility] Pisano [facility] Patient Instructions: Diarrhea, Adult Additional Instructions: The patient was provided with discharge instructions, notified to follow-up with a primary care doctor and or specialist in the next 24-48 hours, and to return to the ED if they have worsening of their symptoms. Please note that this report is being documented using [employer] technology. This can lead to erroneous entry secondary to incorrect interpretation by the dictating instrument. Natanael Rosado MD Mar 31, 2019 16:30
[2019-03-31 16:42] LABS: ANION GAP 3 mmol/L (5-15); BLOOD UREA NITROGEN 11 mg/dL (7-18); CALCIUM 7.9 MG/DL (8.5-10.1); CARBON DIOXIDE 30 MMOL/L (21-32); CHLORIDE 96 MMOL/L (98-107); CREATININE 1.1 MG/DL (0.55-1.30); POTASSIUM 3.6 MMOL/L (3.5-5.1); SODIUM 129 MMOL/L (136-145)
[2019-03-31 16:46] LABS: ALANINE AMINOTRANSFERASE 42 U/L (12-78); ALBUMIN 3.3 G/DL (3.4-5.0); ALBUMIN/GLOBULIN RATIO 0.9 (1.0-2.7); ALKALINE PHOSPHATASE 55 U/L (46-116); ASPARTATE AMINO TRANSFERASE 24 U/L (15-37); BILIRUBIN,TOTAL 0.6 MG/DL (0.2-1.0)
[2019-03-31 17:15] LABS: APPEARANCE,URINE CLEAR; BILIRUBIN, URINE NEGATIVE (NEGATIVE); COLOR,URINE PALE YELLOW; GLUCOSE, URINE (UA) NEGATIVE (NEGATIVE); KETONES,URINE NEGATIVE (NEGATIVE); LEUKOCYTE ESTERASE ,URINE NEGATIVE (NEGATIVE); NITRITE,URINE NEGATIVE (NEGATIVE); PH,URINE 7 (4.5-8.0); PROTEIN,URINE NEGATIVE (NEGATIVE); UROBILINOGEN,URINE NORMAL MG/DL (0.0-1.0)
--- NOTE | 2019-03-31 19:11 | Diagnostic Imaging Report ---
Indication: Abdominal pain Technique: Continuous helical transaxial imaging of the abdomen and pelvis was obtained from the lung bases to the pubic symphysis during intravenous contrast administration. Coronal 2-D reformats were also obtained. Study obtained in a Siemens sensation [address] Automatic Exposure Control was utilized. Total Dose length Product (DLP): 1004.[address] Dose Index Volume (CTDIvol): 16.7 mGy Comparison: None Findings: There is mild left posterior basal atelectasis and elevation of the left hemidiaphragm demonstrated. The right kidney is absent. Gallbladder is absent. There is mild biliary ductal dilatation. Left kidney is unremarkable. There is no hydronephrosis. No free fluid identified. Bowel gas pattern is nonobstructive. Bladder is unremarkable. Aorta is moderately calcified. There is narrowing of intervertebral discs and accompanying endplate osteophyte formation. Hypertrophied facet joints also demonstrated. IMPRESSION: No acute findings appreciated. Multiple incidental findings as above. [facility] has communicated the preliminary results to the Emergency Department. Their findings are largely concordant with this report. The CT scanner at [facility] is accredited by the [employer] and the scans are performed using dose optimization techniques as appropriate to a performed exam including Automatic Exposure control.
[2019-03-31] MEDS ORDERED: DICYCLOMINE HCL10 MG ORAL (19:14)
--- NOTE | 2019-03-31 19:43 | NUR ---
ED Nurse Note: Patient cleared for discharge by ermd and verbalized understanding of discharge instructions. IV removed, ID band removed patient departed with all belongings.
[2019-04-01 00:15] VITALS: BP 130/82
== END 2019-03-31 19:40 | disposition home or self-care (01) ==
LOC: EDUNIT# 15:14 → EDBD 15:14 → EMR 15:45
DX: R19.7 Diarrhea, unspecified (principal); Z88.8 Allergy status to other drugs, medicaments and biological substances; K21.9 Gastro-esophageal reflux disease without esophagitis; Z85.46 Personal history of malignant neoplasm of prostate; Z90.5 Acquired absence of kidney
CPT/HCPCS: 36415; 74177; 80053; 81003; 83690; 85007; 85025; 96361; 96374; 96375; 99284; J2405; Q9967; S0028; J7030

== ENCOUNTER 2019-05-10 08:34 | Emergency (ER) | payer MEDICARE, OTHER ==
[~2019-05-10] VITALS: Ht 177.8 cm; Wt 90.7 kg
[~2019-05-10 08:34] MED LIST changes: +DICYCLOMINE HCL10 MG ORAL
[2019-05-10] MEDS ORDERED: Aspirin Baby 81mg ORAL ONE (08:45)
--- NOTE | 2019-05-10 08:49 | NUR ---
ED Nurse Note: Pt walked into Ed w/ c/o chest pressure mid chest, but denies chest pain since this morning 0600. Pt felt SOB this morning 0600. Pt also states he feels has palpitations when he feels his radial pulse, but denies, in L chest palpitations. Pt set up on monitor. No acute distress. 02 96% RA. Pain 0/10. HR 88.
--- NOTE | 2019-05-10 09:02 | Emergency Room Report ---
History of Present Illness General Chief Complaint: Palpitations Source: Patient Present Illness HPI Disclaimer: Please note that this report is being documented using [employer] technology. This can lead to erroneous entry secondary to incorrect interpretation by the dictating instrument. HPI: 74-year-old male with a history of IBS, prostate cancer status post resection currently in surveillance, anxiety disorder, depression presents for evaluation of shortness of breath and chest discomfort. Symptoms began this morning at 5 AM. He notes a chest pressure as if somebody had put a weight on the center of his chest causing mild shortness of breath. The sensation comes and goes. He currently is chest pain-free and breathing easily without other complaints. Reports intermittent palpitations. States he had a sore throat, nonproductive cough 1 week ago but those symptoms are resolving. Afebrile. Denies abdominal pain vomiting or diarrhea. Reports being under significant stress recently over his financial matters and the health of his . He is the primary caregiver and is giving him significant stress. He participates in group therapy. Denies SI/HI. Feeling well about his own mental health at this time but does report a lot of stress and anxiety. States he had multiple stress test that is been several years. Denies history of CAD. PMH: IBS, prostate cancer status post resection PSH: Cholecystectomy, nephrectomy, prostatectomy Allergies: Donepezil Social Hx: Never smoker Allergies: Coded Allergies: DONEPEZIL (Verified Allergy, Mild, IBS aggravation, 08/06/18) Nursing Documentation-PMH Past Medical History: No History, Except For Hx Cardiac Problems: No - prostate cx, one kidney Hx Cancer: Yes - prostate Hx Gastrointestinal Problems: Yes - GERD, IBS Hx Dialysis: No - 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 Review of Systems All Other Systems: negative except mentioned in HPI Physical Exam Vital Signs Date Time Temp Pulse Resp B/P (MAP) Pulse Ox O2 Delivery O2 Flow Rate FiO2 05/10/19 08:38 98.1 103 19 91/60 (70) 95 Room Air General: Awake and alert, no acute distress HEENT: NC/AT. EOMI. Neck: Supple, trachea midline Chest Wall: No tenderness, no deformity Cardiovascular: RRR. S1 and S2 normal. No murmur appreciated Resp: Normal work of breathing. No cough, wheezing or crackles appreciated Abdomen: Abdomen is soft, nondistended. Nontender Skin: Intact. No abrasions, laceration or rash over the exposed skin MSK: Normal tone and bulk. Moving all extremities. No obvious deformity. Neuro: Awake and alert. Mentating appropriately. Medical Decision Making ER Course 74-year-old male presents for evaluation of chest heaviness and intermittent shortness of breath beginning this morning at 5 AM. Currently symptom-free and resting comfortably at his baseline. His vital signs are stable though he is intermittently tachycardic. Differential includes but is not limited to anxiety , stress response, ACS, arrhythmia, bronchitis, viral syndrome, pneumonia, pneumothorax. Started cardiac work-up. EKG shows sinus rhythm and nonischemic. Laboratory Tests Test 05/10/19 09:00 White Blood Count 6.5 K/UL (4.8-10.8) Red Blood Count 4.67 M/UL (4.70-6.10) L Hemoglobin 14.0 G/DL (14.2-18.0) L Hematocrit 41.8 % (42.0-52.0) L Mean Corpuscular Volume 89 FL (80-99) Mean Corpuscular Hemoglobin 30.0 PG (27.0-31.0) Mean Corpuscular Hemoglobin Concent 33.6 G/DL (32.0-36.0) Red Cell Distribution Width 11.6 % (11.6-14.8) Platelet Count 218 K/UL (150-450) Mean Platelet Volume 6.5 FL (6.5-10.1) Neutrophils (%) (Auto) 60.0 % (45.0-75.0) Lymphocytes (%) (Auto) 24.9 % (20.0-45.0) Monocytes (%) (Auto) 9.1 % (1.0-10.0) Eosinophils (%) (Auto) 4.8 % (0.0-3.0) H Basophils (%) (Auto) 1.3 % (0.0-2.0) Sodium Level 136 MMOL/L (136-145) Potassium Level 3.9 MMOL/L (3.5-5.1) Chloride Level 103 MMOL/L (98-107) Carbon Dioxide Level 27 MMOL/L (21-32) Anion Gap 6 mmol/L (5-15) Blood Urea Nitrogen 16 mg/dL (7-18) Creatinine 1.1 MG/DL (0.55-1.30) Estimate Glomerular Filtration Rate mL/min (>60) Glucose Level 114 MG/DL (74-106) H Calcium Level 8.9 MG/DL (8.5-10.1) Total Bilirubin 0.6 MG/DL (0.2-1.0) Aspartate Amino Transferase (AST) 23 U/L (15-37) Alanine Aminotransferase (ALT) 29 U/L (12-78) Alkaline Phosphatase 76 U/L (46-116) Troponin I 0.000 ng/mL (0.000-0.056) Total Protein 7.1 G/DL (6.4-8.2) Albumin 3.5 G/DL (3.4-5.0) Globulin 3.6 g/dL Albumin/Globulin Ratio 1.0 (1.0-2.7) EKG Diagnostic Results EKG Time: 08:48 Rate: normal Rhythm: NSR ST Segments: no acute changes Other Impression Sinus rhythm, normal axis, normal intervals, no ST segment changes. Rhythm Strip Diag. Results Rhythm Strip Time: 08:48 EP Interpretation: yes Rate: 90s Rhythm: NSR, no ectopy Chest X-Ray Diagnostic Results Chest X-Ray Diagnostic Results : Chest X-Ray Ordered: Yes # of Views/Limited/Complete: 1 View Indication: Chest Pain EP Interpretation: Yes Interpretation: no consolidation, no effusion, no pneumothorax, no acute cardiopulmonary disease Impression: No acute disease Electronically Signed by: Electronically signed by Dr. Danie Chang Reevaluation Time: 10:27 Last Vital Signs Date Time Temp Pulse Resp B/P (MAP) Pulse Ox O2 Delivery O2 Flow Rate FiO2 05/10/19 08:38 98.1 103 19 91/60 (70) 95 Room Air Reevaluation Impression EKG is nonischemic and otherwise unremarkable. No evidence of pneumonia or other pathology on chest x-ray. Labs including cardiac enzymes are within normal limits. The patient remains comfortable and chest pain-free. He believes his episodes are related to his recent stress and anxiety levels. I discussed that he should have a cardiology evaluation as it has been several years since his last stress test. He states he would rather have this as an outpatient as he like to go to his group therapy meeting this afternoon. He understands the risks of leaving the emergency department and not having cardia evaluation in the hospital and he assumes these risks and understands them. He promises he will return if there are any new or worsening symptoms. He prefers to follow-up as an outpatient with his PMD. Given his labs, chest x-ray and EKG feel this is reasonable. He will be discharged to follow-up as an outpatient and return with any new or worsening symptoms. He understands and agrees with the treatment plan will be discharged home Disposition: HOME, SELF-CARE Condition: Stable Referrals: NON PHYSICIAN (PCP) Danie Chang MD May 10, 2019 09:02
[2019-05-10 09:05] VITALS: BP 112/64
[2019-05-10 09:26] LABS: BASOPHILS % (AUTO) 1.3 % (0.0-2.0); EOSINOPHILS % (AUTO) 4.8 % (0.0-3.0); HEMATOCRIT 41.8 % (42.0-52.0); LYMPHOCYTES % (AUTO) 24.9 % (20.0-45.0); MEAN CORPUSCULAR VOLUME 89 FL (80-99); MONOCYTES % (AUTO) 9.1 % (1.0-10.0); PLATELET COUNT 218 K/UL (150-450); RED BLOOD COUNT 4.67 M/UL (4.70-6.10); RED CELL DISTRIBUTION WIDTH 11.6 % (11.6-14.8); WHITE BLOOD COUNT 6.5 K/UL (4.8-10.8)
[2019-05-10 09:33] LABS: ANION GAP 6 mmol/L (5-15); BLOOD UREA NITROGEN 16 mg/dL (7-18); CALCIUM 8.9 MG/DL (8.5-10.1); CARBON DIOXIDE 27 MMOL/L (21-32); CHLORIDE 103 MMOL/L (98-107); CREATININE 1.1 MG/DL (0.55-1.30); POTASSIUM 3.9 MMOL/L (3.5-5.1); SODIUM 136 MMOL/L (136-145)
[2019-05-10 09:38] LABS: ALANINE AMINOTRANSFERASE 29 U/L (12-78); ALBUMIN 3.5 G/DL (3.4-5.0); ALKALINE PHOSPHATASE 76 U/L (46-116); ASPARTATE AMINO TRANSFERASE 23 U/L (15-37); BILIRUBIN,TOTAL 0.6 MG/DL (0.2-1.0)
--- NOTE | 2019-05-10 10:30 | Diagnostic Imaging Report ---
Indication: Chest pain Technique: One view of the chest Comparison: 03/17/2019 Findings: Lungs and pleural spaces are clear. The heart size is normal. The aorta is ectatic. There is no significant interim change Impression: No acute process
--- NOTE | 2019-05-10 10:47 | NUR ---
ER DISCHARGE NOTE: Patient is cleared to be discharged per ERMD, pt is aox4, on room air, with stable vital signs. pt was given dc instructions, pt was able to verbalize understanding, pt id band and iv site removed without complications. pt is able to ambulate with steady gait. pt took all belongings. Pt educated about CP.
[2019-05-10 10:50] VITALS: BP 110/73
== END 2019-05-10 10:50 | disposition home or self-care (01) ==
LOC: EMR 08:54
DX: R06.02 Shortness of breath (principal); F41.9 Anxiety disorder, unspecified; F32.9 Major depressive disorder, single episode, unspecified; R07.9 Chest pain, unspecified; Z85.46 Personal history of malignant neoplasm of prostate; Z90.49 Acquired absence of other specified parts of digestive tract; Z90.79 Acquired absence of other genital organ(s); Z90.5 Acquired absence of kidney; K21.9 Gastro-esophageal reflux disease without esophagitis; Z88.8 Allergy status to other drugs, medicaments and biological substances; R00.2 Palpitations; R00.0 Tachycardia, unspecified
CPT/HCPCS: 36415; 71045; 80053; 84484; 85025; 93005; 99284

== ENCOUNTER 2020-01-26 14:11 | Emergency (ER) | payer MEDICARE, OTHER ==
[~2020-01-26] VITALS: Ht 177.8 cm; Wt 90.7 kg
--- NOTE | 2020-01-26 14:12 | NUR ---
ED Nurse Note: PT brought in by 8[address] frm home for a dog bite to right cheek area ealier today. denies any p ain at this time. no active bleeding noted.
[2020-01-26 14:13] VITALS: BP 138/79
[2020-01-26] MEDS ORDERED: Tetanus/Diptheria/Pertussis IM ONE (14:15)
--- NOTE | 2020-01-26 14:26 | Emergency Room Report ---
History of Present Illness General Chief Complaint: Animal Bite Source: Patient Present Illness HPI 75-year-old male presents to the emergency department for laceration to the right side of his cheek x30 minutes prior to arrival. Patient reports his dog bit him in the face when he was giving it a kiss. Patient reports that the dog was vaccinated 2 years ago. Patient states he is not up-to-date with his tetanus vaccination. Patient denies taking blood thinning medications. Patient reports some mild bleeding with palpation of the affected area. Patient denies numbness or tingling. Patient denies significant past medical history. No other aggravating relieving factors. He denies pain at this time. Allergies: Coded Allergies: DONEPEZIL (Verified Allergy, Mild, IBS aggravation, 08/06/18) COVID-19 Screening Contact w/high risk pt: No Experienced COVID-19 symptoms?: No COVID-19 Testing performed NEUROSURGERY SPINE PHYSICIAN: No Patient History Past Medical History: see triage record Past Surgical History: none Pertinent Family History: none Reviewed Nursing Documentation: PMH: Agreed; PSxH: Agreed Nursing Documentation-PMH Past Medical History: No History, Except For Hx Cardiac Problems: No - prostate cx, one kidney Hx Cancer: Yes - prostate Hx Gastrointestinal Problems: Yes - GERD, IBS Hx Dialysis: No - 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 Review of Systems All Other Systems: negative except mentioned in HPI Physical Exam Vital Signs Date Time Temp Pulse Resp B/P (MAP) Pulse Ox O2 Delivery O2 Flow Rate FiO2 01/26/20 14:06 98.1 98 16 138/79 (98) 100 Room Air Sp02 EP Interpretation: reviewed, normal General Appearance: no apparent distress, alert, GCS 15, non-toxic Head: normocephalic, other - laceration to the right cheek total length of 2cm Eyes: bilateral eye normal inspection, bilateral eye PERRL ENT: hearing grossly normal, normal voice Neck: full range of motion Respiratory: lungs clear, normal breath sounds, speaking full sentences Cardiovascular #1: regular rate, rhythm Musculoskeletal: normal range of motion, gait/station normal, non-tender Neurologic: alert, motor strength/tone normal, oriented x3, sensory intact, responsive, speech normal Psychiatric: judgement/insight normal Skin: laceration - total length of 2cm to the right cheek. Procedures Laceration/Wound Repair Laceration/Wound Repair : Consent: Verbal Wound Location: face - right cheek Wound's Depth, Shape: linear, irregular Wound Explored: contaminated - dog bite Betadine Prep?: Yes Anesthesia: Lidocaine w/ Epi Volume Anesthetic (ccs): 4 Wound Repaired With: sutures Suture Size/Type: 6:0 Number of Sutures: 6 Layer Closure?: No Sterile Dressing Applied?: No Splint Applied?: No Sling Applied?: No Patient Tolerated: Well Complications: None Medical Decision Making PA Attestation Dr. Chang is my supervising Physician whom patient management has been discussed with. Diagnostic Impression: Primary Impression: Dog bite of face Qualified Codes: S01.85XA - Open bite of other part of head, initial encounter ; W54.0XXA - Bitten by dog, initial encounter ER Course 75-year-old male presents to the emergency department for laceration to the right side of his cheek x30 minutes prior to arrival. Patient reports his dog bit him in the face when he was giving it a kiss. Patient reports that the dog was vaccinated 2 years ago. Patient states he is not up-to-date with his tetanus vaccination. Patient denies taking blood thinning medications. Patient reports some mild bleeding with palpation of the affected area. Patient denies numbness or tingling. Patient denies significant past medical history. No other aggravating relieving factors. He denies pain at this time. Ddx considered but are not limited to laceration, tendon injury, cellulitis, amputation Vital signs: are WNL, pt. is afebrile H&PE are most consistent with: [ ] laceration approx [ ] cm in length ORDERS: none required at this time, the diagnosis is clinical ED INTERVENTIONS: -Augmentin 875 PO -Tetanus vaccine was administered as pt. vaccination status was unknown. - The wound was copiously irrigated with normal saline, and explored for foreign body for which no FB was found. - pt. is anesthetized with 1%lidocaine w. epi. - The wound was approximated and closed loosely using 6 interrupted 6.0 Ethilon sutures. -Bacitracin and sterile dressing is applied. Discussed with patient: That we make every effort to approximate the laceration as best as we can so that scarring will be as cosmetically pleasing as possible with our limited cosmetic skill set in the Emergency dept. Regardless of our best efforts there will be scarring after laceration repair. The extent of scarring is unknown at this time. DISCHARGE: At this time pt. is stable for d/c to home. Will provide printed patient care instructions, and any necessary prescriptions. Care plan and follow up instructions have been discussed with the patient prior to discharge. Last Vital Signs Date Time Temp Pulse Resp B/P (MAP) Pulse Ox O2 Delivery O2 Flow Rate FiO2 01/26/20 14:13 98.1 86 16 138/79 100 Room Air Disposition: HOME, SELF-CARE Condition: Stable Scripts Mupirocin* (MUPIROCIN*) 22 Gm Oint...g. 1 APPLIC TOPIC THREE TIMES A DAY, #22 GM Prov: Kristi Levin 01/26/20 Amoxicillin/Potassium Clav 875-125* (AUGMENTIN 875-125 TABLET*) 1 Each Tablet 1 TAB ORAL TWICE A DAY for 7 Days, #14 TAB Prov: Kristi Levin 01/26/20 Referrals: [facility] Patient Instructions: Animal Bite Additional Instructions: Take medications as directed. SUTURES TO BE REMOVED IN 5 DAYS Follow up with a Primary Care Provider in 3-5 days, even if your symptoms have resolved. --Please review list of primary care clinics, if you do not already have a primary care provider Return sooner to ED if new symptoms occur, or current symptoms become worse. - Please note that this Emergency Department Report was dictated using [employer]Engine[employer] drafting technician technology software, occasionally this can lead to erroneous entry secondary to interpretation by the dictation equipment. Kristi Levin Jan 26, 2020 14:26
[2020-01-26] MEDS ORDERED: Lidocaine 2% 20mg/ml/EPI 0.01mg/ml 20ml INJ ONE (14:30)
[2020-01-26] MEDS ORDERED: Bacitracin Oint UD TOPIC ONE (15:15)
[2020-01-26] MEDS ORDERED: AUGMENTIN 875-1 EAC1 ORAL (15:18)
[2020-01-26] MEDS ORDERED: MUPIROCIN22 GM TOPIC (15:18)
[2020-01-26] MEDS ORDERED: Augmentin 875mg Tab ORAL ONE (15:30)
--- NOTE | 2020-01-26 15:39 | NUR ---
ER DISCHARGE NOTE: stitches were places by er nicola perez. Patient is cleared to be discharged per ERPA, pt is aox4, on room air, with stable vital signs. pt was given dc and prescription instructions, pt was able to verbalize understanding, pt id band removed without complications. pt is able to ambulate with steady gait. pt took all belongings.
[2020-01-26 15:40] VITALS: BP 138/79
== END 2020-01-26 15:39 | disposition home or self-care (01) ==
LOC: EDBD 14:11 → EMR 15:25
DX: S01.85XA Open bite of other part of head, initial encounter (principal); W54.0XXA Bitten by dog, initial encounter; Z23 Encounter for immunization; K21.9 Gastro-esophageal reflux disease without esophagitis; Z85.46 Personal history of malignant neoplasm of prostate; Z90.5 Acquired absence of kidney; Z88.8 Allergy status to other drugs, medicaments and biological substances
CPT/HCPCS: 90471; 90715; 99283

== ENCOUNTER 2020-02-01 09:14 | Emergency (ER) | payer MEDICARE, OTHER ==
[~2020-02-01] VITALS: Ht 177.8 cm; Wt 90.7 kg
[~2020-02-01 09:14] MED LIST changes: +AUGMENTIN 875-1 EAC1 ORAL; +MUPIROCIN22 GM TOPIC
[2020-02-01 09:26] VITALS: BP 125/72
--- NOTE | 2020-02-01 09:26 | Emergency Room Report ---
History of Present Illness General Chief Complaint: Wound Recheck/Suture Removal Source: Patient, Medical Record Present Illness HPI Patient is a 75-year-old male past medical history of depression who presents the ER for wound check and suture removal. Patient was bit by dog on 01/26/2016. Patient came to the emergency room. Laceration repair was performed. Patient was given a tetanus and has been on antibiotics for the past 6 days. Patient denies any pain at the site. He denies any redness or discharge from the site. He denies any fever or chills. 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 Review of Systems All Other Systems: negative except mentioned in HPI Physical Exam Vital Signs Date Time Temp Pulse Resp B/P (MAP) Pulse Ox O2 Delivery O2 Flow Rate FiO2 02/01/20 09:18 98.2 112 16 123/73 (90) 93 Room Air Sp02 EP Interpretation: reviewed, normal General Appearance: no apparent distress, alert, GCS 15, non-toxic Head: normocephalic, atraumatic Eyes: bilateral eye normal inspection, bilateral eye PERRL ENT: hearing grossly normal, normal pharynx, no angioedema, normal voice Neck: full range of motion, supple/symm/no masses Respiratory: chest non-tender, lungs clear, normal breath sounds, speaking full sentences Cardiovascular #1: regular rate, rhythm, no edema Gastrointestinal: normal bowel sounds, non tender, soft, non-distended, no guarding, no rebound Rectal: deferred Musculoskeletal: normal range of motion Neurologic: band shover III-XII nml as tested, oriented x3 Psychiatric: no suicidal/homicidal ideation Skin: other - Healed vertical laceration to right side of mouth with [address] no erythema or swelling or discharge Lymphatic: no adenopathy Medical Decision Making Diagnostic Impression: Primary Impression: Visit for suture removal ER Course Sutures removed without any complication. Steri-Strips placed over the laceration site. After discussing risks and benefits of further diagnostics, treatment plans, as well as indications for and risks of admission, the patient is agreeable to being discharged home. I have explained that their evaluation and treatment in the emergency department today is an important step towards them achieving better health but that their evaluation today is not intended to replace further evaluation and treatment by a physician in their local clinic. I have explained that while the current findings suggest no immediate life threatening emergency they will require further evaluation and treatment by a physician of their choice in their area. They understand that it will be necessary for them to review the final reports of their ED visit with their clinic physician. We have reviewed indications for return to the Emergency Department. I have explained that additional time may need to pass and/or additional testing as an outpatient may be necessary before a definitive diagnosis can be made. They tell me they are willing to follow up as instructed within the timeframe I recommend. They appear to understand what we discussed. Additionally they understand that if they are unable to be seen by an outpatient physician they are welcome, and in fact should, return to the Emergency Department for a repeat evaluation. The patient is stable at time of discharge. Last Vital Signs Date Time Temp Pulse Resp B/P (MAP) Pulse Ox O2 Delivery O2 Flow Rate FiO2 02/01/20 09:18 98.2 112 16 123/73 (90) 93 Room Air Disposition: HOME, SELF-CARE Condition: Stable Referrals: [facility] Patient Instructions: Suture Removal, Care After Additional Instructions: The patient was provided with discharge instructions, notified to follow-up with a primary care doctor and or specialist in the next 24-48 hours, and to return to the ED if they have worsening of their symptoms. Please note that this report is being documented using [employer] technology. This can lead to erroneous entry secondary to incorrect interpretation by the dictating instrument. Christine Tenorio M.D. Feb 01, 2020 09:26
[2020-02-01 09:34] VITALS: BP 120/79
== END 2020-02-01 09:34 | disposition home or self-care (01) ==
LOC: EMR 09:23
DX: Z48.02 Encounter for removal of sutures (principal); Z88.8 Allergy status to other drugs, medicaments and biological substances; Z85.46 Personal history of malignant neoplasm of prostate; Z90.5 Acquired absence of kidney; K21.9 Gastro-esophageal reflux disease without esophagitis
CPT/HCPCS: 99283